=== PATIENT | male | born 1965 | race Caucasian/White ===

== ENCOUNTER → 2019-06-03 13:01 | Outpatient (CLI) | payer BC, SELFPAY ==
--- NOTE | 2019-06-03 13:13 | XR_ITS ---
PROCEDURE: XR MULTIPLE SPINE 6+V CLINICAL INDICATION: CERVICALGIA, THORACIC PAIN Neck pain shooting down right arm COMPARISON: No exams were available for comparison FINDINGS: Cervical spine: Three views, normal alignment. There is mild degenerative disc disease at C5-C6 and moderate degenerative disc disease at C6-C7 with mild degenerative disc disease at C7-T1. There is straightening of the cervical lordosis which may be due to patient positioning or muscle spasm. No fracture or dislocation. Mild uncovertebral and facet arthritic changes are present at C6-C7. Thoracic spine: Minimal gentle thoracic curvature convex right. No fracture or dislocation. No lytic or blastic change. There is mild spurring involving the L1 vertebral body anteriorly along its superior margin. IMPRESSION: 1. Degenerative changes of the cervical spine as described above. 2. Minimal thoracic curvature convex right Dictated by: Parrish Larson MD 06/03/2019 13:33 Electronically signed by Parrish Larson MD in [place] 06/03/2019 13:33
== END ==
PROVIDERS: PCP Nurse Practitioner; Visit Provider Nurse Practitioner
DX: M54.2 Cervicalgia (principal); M54.6 Pain in thoracic spine
CPT/HCPCS: 72084

== ENCOUNTER 2019-07-14 17:00 | Outpatient (RCR) | payer BC, SELFPAY | END 2019-07-28 14:17 | disposition home or self-care (01) | LOC: PT.CARL 17:00 | PROVIDERS: PCP Nurse Practitioner; Visit Provider Nurse Practitioner Family | DX: M54.2 Cervicalgia (principal) | CPT/HCPCS: 97010; 97012; 97014; 97033; 97110; 97140; 97163; G0283 ==

== ENCOUNTER 2023-05-03 07:06 | Emergency (ER) | payer BC, SELFPAY ==
[2023-05-03 07:10] VITALS: BP 140/91; PULSE 93; RESP 18; TEMP 36.5; O2SAT 98; BMI 22.5
--- NOTE | 2023-05-03 07:16 | PC.NURSE ---
left wrist pain 10/10 fell walking his dogs
[2023-05-03 07:20] VITALS: BP 143/96; PULSE 80; RESP 16; O2SAT 97
--- NOTE | 2023-05-03 07:20 | XR_ITS ---
PROCEDURE INFORMATION: Exam: XR Chest Exam date and time: 05/03/2023 7:21 AM Age: 57 years old Clinical indication: Injury or trauma; Fall; Blunt trauma (contusions or hematomas); Additional info: Fall from standing, L rib pain no ecchymosis TECHNIQUE: Imaging protocol: Radiologic exam of the chest. Views: 1 view. COMPARISON: CR XR MULTIPLE SPINE 6+V 06/03/2019 1:18 PM FINDINGS: Lungs: Chronic Atelectasis left base. No consolidation. Pleural spaces: Unremarkable. No pleural effusion. No pneumothorax. Heart/Mediastinum: Unremarkable. No cardiomegaly. Bones/joints: Unremarkable. IMPRESSION: No acute findings.
--- NOTE | 2023-05-03 07:20 | XR_ITS ---
PROCEDURE INFORMATION: Exam: XR Left Wrist Exam date and time: 05/03/2023 7:21 AM Age: 57 years old Clinical indication: Injury or trauma; Fall; Blunt trauma (contusions or hematomas); Wrist; Left; Additional info: Fall from standing onto L wrist, ? FX TECHNIQUE: Imaging protocol: Radiologic exam of the left wrist. Views: 1 or 2 views. COMPARISON: No relevant prior studies available. FINDINGS: Bones/joints: There is no evidence of acute fracture.There is no evidence of malalignment or dislocation. Soft tissues: Normal. IMPRESSION: There is no evidence of acute fracture.There is no evidence of malalignment or dislocation.
--- NOTE | 2023-05-03 07:21 | HMH.EDGENADL ---
Discharge Plan Disposition Patient Disposition: Home, Self-Care Condition: Good Chief Complaint: Extremity Injury, Lower Prescriptions Prescriptions: No Action rosuvastatin 40 mg tablet 40 mg PO DAILY Patient Comments: TAKE 1 TABLET BY MOUTH EVERY DAY Referrals Follow up/Referrals: Lynda Moreno APRN [Primary Care Provider] - See instructions Activity Restrictions/Add. Instructions Additional Instructions/Restrictions: You can take Tylenol and Motrin for pain control and please follow-up closely with your primary care provider to ensure improving symptoms. Return for any new or worsening symptoms. Clinical Impressions Clinical Impression: Left wrist sprain Instructions Patient Instructions: Wrist Sprain Discharge ED Provider: Janessa Garzon General Adult HPI General Chief complaint: Extremity Injury, Lower Stated complaint: AO Pain in L Wrist and L Rib area Time Seen by Provider: 05/03/23 07:09 Mode of Arrival: Ambulatory Source of Information: Patient Limitations: No Limitations Description of Symptoms (Recalled from ER Triage Doc. by RN): fell yesterday and is having left wrist pain History of Present Illness HPI narrative: Patient is a 57-year-old male with no significant past medical history presenting with left wrist and rib pain. Patient states he was walking his dogs yesterday and he had the leash in his left hand when they became tangled and he fell onto his left side between his left wrist and left ribs. He has had pain in this area ever since and took Tylenol last night and this morning but due to continued pain he presents for further evaluation. He denies any numbness or tingling. He did not hit his head or lose consciousness, not on blood thinning medications. Related Data Home Medications Medication Instructions Recorded Confirmed rosuvastatin 40 mg tablet 40 mg PO DAILY 05/03/23 05/03/23 Allergies Allergy/AdvReac Type Severity Reaction Status Date / Time No Known Allergies Allergy Verified 05/03/23 07:24 [facility] Disclaimer: The information contained in this section may have been updated after the patient was seen, as this information can be updated by other users. Social History Smoking Status: Never smoker alcohol intake: never current occupational status: employed Travel in the last 8 weeks: None ROS Obtained: Yes Systems reviewed as appropriate & no additional complaints except as documented Physical Exam General General appearance: alert and in no apparent distress Head Head exam: atraumatic and normocephalic Chest Chest inspection: Present normal inspection, symmetric chest wall rise and other (Mild tenderness over left ribs without palpable deformity, ecchymosis or abrasion) Respiratory Respiratory exam: Present normal lung sounds bilaterally; Absent respiratory distress Cardiovascular Cardiovascular exam: Present regular rate and normal rhythm Abdominal Exam Abdominal exam: Present soft; Absent tenderness Extremities Exam Extremities exam: Present normal inspection and other (Tenderness to palpation over left wrist, is able to range of motion but with some pain provoked, no ecchymosis or significant deformity appreciated, 2+ radial and ulnar pulses, cardinal hand motions intact) Neurological Exam Neurological exam: Present alert and oriented X3 Skin Skin exam: Present warm and dry Medical Decision Making Medical Records Medical records reviewed: Yes I reviewed the patient's medical records. Navin Inquiry Pt receiving controlled substance: No Vital Signs: 05/03/23 07:10 05/03/23 07:20 05/03/23 07:39 Temperature 97.7 F Temperature Source Oral Pulse Rate 80 80 Pulse Rate [Right Radial] 93 H Respiratory Rate 18 16 16 Blood Pressure 143/96 H 110/91 H Blood Pressure [Right Arm] 140/91 H Blood Pressure Mean 103 94 Blood Pressure Mean [Right Arm] 107 02 Sat by Pulse Oximetry 98 97 97 Oxygen Delivery Method Room Air Orders (Tests/Meds): ED MEDICATIONS Discontinued Medications Generic Name Dose Route Start Last Admin Trade Name Freq PRN Reason Stop Dose Admin Ketorolac Tromethamine 30 mg 05/03/23 07:20 05/03/23 07:34 Ketorolac 30mg/Ml Vial IM 05/03/23 07:21 30 mg ONCE ONE Administration ORDERS Category Date Time Status Chest XR -- portable [XR chest portable] Stat Exams 05/03/23 07:20 Completed Wrist XR left 2 views [XR wrist LT 2V] Stat Exams 05/03/23 07:20 Completed Medical Decision Narrative: Patient is a 57-year-old male with no significant past medical history presenting with left wrist and rib pain after fall from standing approximately 14 hours prior to arrival after being tangled in dogs leashes. He did not hit his head or lose consciousness and has no appreciable abrasions, ecchymosis or deformity but does have some tenderness with range of motion of the left wrist and tenderness to palpation of this area but rest of left upper extremity nontender to palpation and cardinal hand motions intact, neurovascularly intact. He does have some mild tenderness to palpation over the left ribs without abrasion, ecchymosis or deformity. Will obtain imaging for further evaluation and provide Toradol for pain control. X-rays were unremarkable for acute fracture or abnormality. This was discussed with patient and feel symptoms more likely in the setting of sprain and recommended symptomatic management which patient is agreeable. 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 Discharged in stable condition. Critical Care Critical Care Time Critical Care Time: No
--- NOTE | 2023-05-03 07:29 | PC.NURSE ---
xr at bedside
[2023-05-03] MEDS: KETOROLAC 30MG/ML VIAL 30 MG IM (07:34)
[2023-05-03 07:39] VITALS: BP 110/91; PULSE 80; RESP 16; O2SAT 97
--- NOTE | 2023-05-03 08:00 | PC.NURSE ---
rounded on pt to reassess pain. pt advised medication decreased his pain. no other needs voiced.
--- NOTE | 2023-05-03 08:05 | PC.NURSE ---
Called radiology to check on status of XR read, [facility] showing XR is assigned and next in line. MD & pt notified.
[2023-05-03 08:24] VITALS: BP 128/84; PULSE 91; RESP 18; TEMP 36.6; O2SAT 98
== END 2023-05-03 08:35 | disposition home or self-care (01) ==
PROVIDERS: Emergency Provider Emergency Medicine; PCP Nurse Practitioner
DX: R07.81 Pleurodynia (principal); S63.92XA Sprain of unspecified part of left wrist and hand, initial encounter; W19.XXXA Unspecified fall, initial encounter
CPT/HCPCS: 71045; 73100; 96372; 99283